=== PATIENT | male | born 1950 ===

== ENCOUNTER 2018-01-07 13:20 | Day surgery (SDC) | payer BC, MEDICARE ==
[~2018-01-07] VITALS: Ht 172.7 cm; Wt 96.2 kg
[~2018-01-07 13:20] MED LIST: AMLO10 PO; ENAL10 PO; Hydrochlorothia25 MG PO; Percocet 5-3251 EACH PO; Vitamin D2000 UNIT PO
== END 2018-01-07 16:25 | disposition home or self-care (01) ==
LOC: ORSCSDS 13:20
PROVIDERS: Internal Medicine Gastroenterology
PROC: 0DBH8ZX Excision of Cecum, Via Natural or Artificial Opening Endoscopic, Diagnostic (ICD-10-PCS; principal; 2018-01-07 15:00)
DX: Z12.11 Encounter for screening for malignant neoplasm of colon (principal); D12.0 Benign neoplasm of cecum; K64.8 Other hemorrhoids; K57.30 Diverticulosis of large intestine without perforation or abscess without bleeding; Z86.010 Personal history of colon polyps; I10 Essential (primary) hypertension; Z79.899 Other long term (current) drug therapy; E66.9 Obesity, unspecified; Z68.33 Body mass index [BMI] 33.0-33.9, adult
CPT/HCPCS: 88305; J1980; J3010; J7120